=== PATIENT | female | born 1955 | race Caucasian/White ===

== ENCOUNTER 2020-09-10 16:45 | Outpatient (REF) | payer OTHER, SELFPAY | END 2020-09-10 16:46 | disposition home or self-care (01) | LOC: HO.LAB 16:45 | PROVIDERS: Visit Provider Nurse Practitioner Family | DX: Z20.828 Contact with and (suspected) exposure to other viral communicable diseases (principal) | CPT/HCPCS: 87071; 87635; 87880 ==

== ENCOUNTER 2020-09-19 11:44 | Outpatient (REF) | payer OTHER, SELFPAY ==
--- NOTE | 2020-09-19 11:51 | US_ITS ---
EXAMINATION: US THYROID CLINICAL INFORMATION: Dysphagia, unspecified. COMPARISON: None TECHNIQUE: Linear transducer leal-scale and color Doppler examination with attention to the region of the thyroid. FINDINGS: SIZE: Measurements of the thyroid lobes and nodules are given in sagittal, anteroposterior and transverse dimensions respectively. Right Thyroid Lobe: 4.8 x 1.2 x 1.5 cm, volume 4.5 mL. Parenchyma: The gland echotexture is heterogeneous. Thyroid vascularity is increased. Left Thyroid Lobe: 4.1 x 0.9 x 1.2 cm, volume 2.2 mL. Parenchyma: The gland echotexture is heterogeneous. Thyroid vascularity is increased. Isthmus: 0.3 cm in maximum AP dimension. RIGHT THYROID LOBE: No nodules. ISTHMUS: No nodules. LEFT THYROID LOBE: There are 2 nodules seen. 1. Location: Middle. Size: 0.5 x 0.6 x 0.4 cm. Nodule characteristics: Heterogeneous, smoothly marginated with intranodular flow. 2. Location: Middle. Size: 0.7 x 0.3 x 0.5 cm. Nodule characteristics: Heterogeneous, smoothly marginated with intranodular flow. NODES: No lymphadenopathy is seen in the tissue surrounding the thyroid gland. US/US thyroid IMPRESSION: Subcentimeter left thyroid nodule, nonsuspicious.
[2020-09-19 13:47] LABS: MANUAL DIFF FLAG NO
[2020-09-19 13:58] LABS: Basophils Percent Auto 0.6 % (0-2); Eosinophils Absolute Auto 0.1 X10*3/uL (0.0-0.4); Eosinophils Percent Auto 2.6 % (0-4); Hematocrit 39.4 % (37-47); Imm Gran Abs Auto 0.01 X10*3/uL (0.00-0.03); Imm Gran Pct Auto 0.2 % (0.0-0.4); Lymphocytes Absolute Auto 1.4 X10*3/uL (1.2-4.9); Lymphocytes Percent Auto 30.5 % (20-40); Mean Platelet Volume 10.3 fL (9.4-12.3); Monocytes Absolute Auto 0.4 X10*3/uL (0.1-1.2); Monocytes Percent Auto 8.2 % (2-11); Neutrophils Absolute Auto 2.7 X10*3/uL (2.0-8.3); Neutrophils Percent Auto 57.9 % (45-73); Platelet Count 249 X10*3/uL (160-400); Red Blood Count 4.33 X10*6/uL (4.20-5.50); Red Cell Distribution Width 13.2 % (11.0-16.0); White Blood Count 4.6 X10*3/uL (4.8-10.8)
[2020-09-19 14:25] LABS: Alanine Aminotransferase 13 U/L (0-31); Albumin Level 4.6 g/dL (3.5-5.0); Alkaline Phosphatase 65 U/L (39-117); Anion Gap 13 (12-20); Aspartate Amino Transferase 21 U/L (5-31); Bilirubin Total 0.8 mg/dL (0.0-1.0); Blood Urea Nitrogen 10 mg/dL (9-16); Calcium 8.7 mg/dL (8.4-10.2); Carbon Dioxide 31 mmol/L (22-29); Chloride 101 mmol/L (96-108); Cholesterol 246 mg/dL; Estimated Glomerular Filt Rate 59; Glucose Fasting 81 mg/dL (60-99); HDL Cholesterol 74 mg/dL; LDL Cholesterol Calculated 158 mg/dl; Potassium 3.7 mmol/l (3.3-5.1); Sodium 141 mmol/L (135-145); Triglycerides 73 mg/dL
[2020-09-19 14:33] LABS: TSH reflex Free T4 6.55 mIU/mL (0.32-4.0)
[2020-09-19 15:24] LABS: Free T4 (Free Thyroxine) 0.91 ng/dL (0.71-1.85)
== END 2020-09-19 11:45 | disposition home or self-care (01) ==
LOC: HO.HMGCX 11:44
PROVIDERS: PCP Internal Medicine; Visit Provider Nurse Practitioner Family
DX: R13.10 Dysphagia, unspecified (principal); Z00.00 Encounter for general adult medical examination without abnormal findings; R53.1 Weakness; Z78.0 Asymptomatic menopausal state; E78.5 Hyperlipidemia, unspecified
CPT/HCPCS: 36415; 76536; 80053; 80061; 82306; 84439; 84443; 85025

== ENCOUNTER → 2020-10-30 11:38 | Outpatient (BNVA) | payer OTHER, SELFPAY | PROVIDERS: PCP Internal Medicine; Referring Provider Internal Medicine; Visit Provider Internal Medicine | DX: Z76.89 Persons encountering health services in other specified circumstances (principal) ==

== ENCOUNTER 2020-11-10 17:26 | Outpatient (REF) | payer OTHER, SELFPAY ==
[2020-11-10 18:47] LABS: Free T4 (Free Thyroxine) 0.89 ng/dL (0.71-1.85); Thyroid Stimulating Hormone 2.36 uIU/mL (0.32-4.0); Vitamin D 25-OH Total 56.7 ng/mL (>30)
[2020-11-12 18:37] LABS: Triiodothyronine T3 Total 86 ng/dL (76-181)
[2020-11-12 18:57] LABS: Thyroglobulin Antibodies <1 IU/mL (< or = 1); Thyroid Peroxidase Antibodies 26 IU/mL (<9)
[2020-11-18 14:57] LABS: Thyroid Stimulating Immunoglob <89 % baseline (<140)
[2020-11-19 22:03] LABS: Thyrotropin Receptor Antibody <1.00 IU/L (<=2.00)
== END 2020-11-10 17:27 | disposition home or self-care (01) ==
LOC: HO.LAB 17:26
PROVIDERS: PCP Internal Medicine; Visit Provider Internal Medicine
DX: E03.9 Hypothyroidism, unspecified (principal); E04.2 Nontoxic multinodular goiter
CPT/HCPCS: 36415; 82306; 83520; 84439; 84443; 84445; 84480; 86376; 86800

== ENCOUNTER → 2020-12-11 13:26 | Outpatient (BNVA) | payer OTHER, SELFPAY | PROVIDERS: PCP Internal Medicine; Visit Provider Internal Medicine ==

== ENCOUNTER 2021-01-02 11:04 | Outpatient (REF) | payer OTHER, SELFPAY ==
[2021-01-02 14:16] LABS: Troponin-I High Sensitivity < 3.5 ng/L (<3.5-17.0)
[2021-01-02 14:27] LABS: Cholesterol 228 mg/dL; HDL Cholesterol 68 mg/dL; LDL Cholesterol Calculated 147 mg/dl; Triglycerides 68 mg/dL
[2021-01-02 14:37] LABS: Free T4 (Free Thyroxine) 0.98 ng/dL (0.71-1.85); Thyroid Stimulating Hormone 2.44 uIU/mL (0.32-4.0)
[2021-01-02 14:48] LABS: Free T4 (Free Thyroxine) 0.99 ng/dL (0.71-1.85); Thyroid Stimulating Hormone 2.75 uIU/mL (0.32-4.0)
[2021-01-03 04:03] LABS: Triiodothyronine T3 Free 2.9 pg/mL (2.3-4.2)
[2021-01-03 05:57] LABS: Thyroid Peroxidase Antibodies 18 IU/mL (<9)
== END 2021-01-02 11:05 | disposition home or self-care (01) ==
LOC: HO.HMGCLDS 11:04
PROVIDERS: Internal Medicine; Absent Provider Nurse Practitioner Family; PCP Internal Medicine; Visit Provider Internal Medicine
DX: E03.9 Hypothyroidism, unspecified (principal); R79.89 Other specified abnormal findings of blood chemistry; E04.1 Nontoxic single thyroid nodule; E78.5 Hyperlipidemia, unspecified; E04.2 Nontoxic multinodular goiter; R07.9 Chest pain, unspecified
CPT/HCPCS: 36415; 80061; 84439; 84443; 84481; 84484; 86376

== ENCOUNTER 2021-01-22 12:11 | Outpatient (REF) | payer OTHER, SELFPAY ==
[2021-01-27 07:32] LABS: HPV mRNA E6/E7 rflx Not Detected (Not Detected)
== END 2021-01-22 12:12 | disposition home or self-care (01) ==
LOC: HO.LAB 12:11
PROVIDERS: PCP Internal Medicine; Visit Provider Advanced Practice Midwife
DX: Z01.419 Encounter for gynecological examination (general) (routine) without abnormal findings (principal); Z11.51 Encounter for screening for human papillomavirus (HPV); N94.89 Other specified conditions associated with female genital organs and menstrual cycle; Z87.42 Personal history of other diseases of the female genital tract
CPT/HCPCS: 36415; 87624; 88142

== ENCOUNTER 2021-01-28 13:47 | Outpatient (REF) | payer OTHER, SELFPAY ==
--- NOTE | ~2021-01-28 | US_ITS ---
EXAMINATION: US PELVIS COMPLETE CLINICAL INFORMATION: Abnormal Pap smear, adnexal mass. COMPARISON: None. TECHNIQUE: Transabdominal and transvaginal ultrasound of the pelvis were performed. FINDINGS: The uterus is anteverted and anteflexed measuring 6.0 cm in length, 1.8 cm in AP and 4.0 cm in transverse dimension. Endometrial thickness is 0.1 cm. There is an echogenic calcification in the posterior upper body of uterus, question tiny calcified fibroid versus nonspecific calcification. Right ovary measures 2.7 x 1.8 x 1.7 cm and volume 4.3 mL. There is an anechoic cyst measuring 1.4 x 1.4 x 1.5 cm. Left ovary is not seen. There is no free fluid in the cul-de-sac. US/US pelvic complete IMPRESSION: Small right ovarian 1.5 cm cysts. Left ovary is not seen. Punctate calcification posterior uterus likely small calcific fibroid or a nonspecific calcification.
--- NOTE | ~2021-01-28 | US_ITS ---
EXAMINATION: US PELVIS COMPLETE CLINICAL INFORMATION: Abnormal Pap smear, adnexal mass. COMPARISON: None. TECHNIQUE: Transabdominal and transvaginal ultrasound of the pelvis were performed. FINDINGS: The uterus is anteverted and anteflexed measuring 6.0 cm in length, 1.8 cm in AP and 4.0 cm in transverse dimension. Endometrial thickness is 0.1 cm. There is an echogenic calcification in the posterior upper body of uterus, question tiny calcified fibroid versus nonspecific calcification. Right ovary measures 2.7 x 1.8 x 1.7 cm and volume 4.3 mL. There is an anechoic cyst measuring 1.4 x 1.4 x 1.5 cm. Left ovary is not seen. There is no free fluid in the cul-de-sac. US/US transvaginal IMPRESSION: Small right ovarian 1.5 cm cysts. Left ovary is not seen. Punctate calcification posterior uterus likely small calcific fibroid or a nonspecific calcification.
== END 2021-01-28 13:48 | disposition home or self-care (01) ==
LOC: HO.US 13:47
PROVIDERS: Visit Provider Advanced Practice Midwife
DX: N94.89 Other specified conditions associated with female genital organs and menstrual cycle (principal); Z87.42 Personal history of other diseases of the female genital tract
CPT/HCPCS: 76830; 76856

== ENCOUNTER → 2021-02-04 10:46 | Outpatient (BNVA) | payer OTHER, SELFPAY | PROVIDERS: Visit Provider Advanced Practice Midwife ==

== ENCOUNTER 2021-02-20 09:17 | Outpatient (REF) | payer OTHER, SELFPAY ==
--- NOTE | ~2021-02-20 | FL_ITS ---
EXAMINATION: FL BARIUM SWALLOW CLINICAL INFORMATION: Dysphagia. COMPARISON: None TECHNIQUE: Barium swallow examination is performed using fluoroscopic evaluation in addition to multiple fluoroscopic spot views. The patient is imaged both upright and prone and using both thick and thin sulfate along with effervescent granules. Fluoroscopy time: 1.3 minutes DAP: 2.6 Gycm2 Images: 57 FINDINGS: Following oral administration of thick barium and effervescent granules there is normal antegrade flow from the oral cavity through the pharynx, esophagus into stomach. There is mild mucosal irregularity seen on initial images which could be secondary to mucosal hyperplasia or inflammatory changes. No ulceration seen. The rest of the esophagus is normal. Mild prominence of cricoesophageal sphincter is noted. On oral administration of barium-coated turkey there is normal flow of solid food from the oral cavity through the pharynx, esophagus and stomach. There is no retention seen in the valleculae or piriform sinuses. No laryngeal aspiration or penetration. On placing patient prone lying and oral administration of thin barium there is normal distention of esophagus and pharynx without any obstruction or narrowing. FL/FL barium swallow IMPRESSION: Mild mucosal irregularity of the pharynx but otherwise unremarkable barium swallow exam.
== END 2021-02-20 09:18 | disposition home or self-care (01) ==
LOC: HO.XRAY 09:17
PROVIDERS: Visit Provider Nurse Practitioner Family
DX: R13.10 Dysphagia, unspecified (principal); J02.9 Acute pharyngitis, unspecified
CPT/HCPCS: 74220

== ENCOUNTER 2021-03-16 11:55 | Outpatient (REF) | payer OTHER, SELFPAY ==
[2021-03-16 14:32] LABS: Cholesterol 214 mg/dL; HDL Cholesterol 79 mg/dL; LDL Cholesterol Calculated 124 mg/dl; Triglycerides 58 mg/dL
[2021-03-16 15:01] LABS: Free T4 (Free Thyroxine) 0.92 ng/dL (0.71-1.85)
[2021-03-16 15:04] LABS: Thyroid Stimulating Hormone 2.11 uIU/mL (0.32-4.0)
== END 2021-03-16 11:56 | disposition home or self-care (01) ==
LOC: HO.HMGCLDS 11:55
PROVIDERS: Nurse Practitioner Family; PCP Internal Medicine; Visit Provider Internal Medicine
DX: E78.5 Hyperlipidemia, unspecified (principal); E03.9 Hypothyroidism, unspecified; E04.2 Nontoxic multinodular goiter
CPT/HCPCS: 36415; 80061; 84439; 84443

== ENCOUNTER → 2021-03-23 08:46 | Outpatient (BNVA) | payer OTHER, SELFPAY | PROVIDERS: PCP Internal Medicine; Visit Provider Internal Medicine ==

== ENCOUNTER 2021-06-02 12:31 | Outpatient (REF) | payer OTHER, SELFPAY ==
[2021-06-02 14:34] LABS: Free T4 (Free Thyroxine) 0.97 ng/dL (0.71-1.85); Thyroid Stimulating Hormone 1.59 uIU/mL (0.32-4.0); Vitamin D 25-OH Total 45.8 ng/mL (>30)
== END 2021-06-02 12:32 | disposition home or self-care (01) ==
LOC: HO.HMGCLDS 12:31
PROVIDERS: PCP Internal Medicine; Visit Provider Internal Medicine
DX: E03.9 Hypothyroidism, unspecified (principal); E04.2 Nontoxic multinodular goiter; E55.9 Vitamin D deficiency, unspecified
CPT/HCPCS: 36415; 82306; 84439; 84443

== ENCOUNTER → 2021-06-29 08:14 | Outpatient (BNVA) | payer OTHER, SELFPAY | PROVIDERS: PCP Internal Medicine; Visit Provider Internal Medicine ==

== ENCOUNTER 2021-08-21 09:15 | Outpatient (RCR) | payer OTHER, SELFPAY ==
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
[2021-07-23 14:27] VITALS: BMI 21.8
--- NOTE | 2021-07-23 14:58 | PC.NURSE ---
Case opened in treatment team
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
--- NOTE | 2021-07-28 12:05 | HO.PHPPROGNO ---
Subjective Subjective Date of Service: 07/28/21 Reason For Visit: Bipolar, Anxiety, Depression Diagnostics Vital Signs (24Hr): Body Mass Index 21.8 Assessment & Plan Certification I certify that partial hospital treatment is medically necessary due to the symptoms and problems resulting from the patient's mental illness and the failure to treat the patient at the partial hospital level of care would likely result in the patient requiring inpatient psychiatric care which could not be prevented at a less intensive level of care. Greater than 50% of the session was spent on counseling and/or coordination of care Discharge Plan Discharge Attending provider: Buzz Mayer Medications: New quetiapine [Seroquel] 25 mg tablet See Rx Instructions .ROUTE .COMPLEX 7 Days Qty: 21 RF: 0 No Action clonidine HCl 0.1 mg Tablet 0.05 - 0.1 mg PO BEDTIME PRN (Reason: Insomnia) RF: 0 lamotrigine 100 mg Tablet 200 mg PO DAILY RF: 0 lorazepam 0.5 mg tablet 0.5 mg PO BID PRN (Reason: Anxiety) RF: 0
--- NOTE | 2021-07-31 15:25 | HO.PHPPROGNO ---
Subjective Subjective Date of Service: 07/31/21 Reason For Visit: Bipolar, Anxiety, Depression Subjective Notes: Castillo Warning Guardianship: No Medical Problems Affecting Mental Status: No Interim History: Padmini reports feeling sedated this am, believes it was due to the seroquel 25mg she took. She then states she is having ?a reaction to an event ?, and ?I am kind of paranoid about going back to work ?. She did not elaborate further, except to say ?I want to be upbeat ?. She did endorses increased anxiety symptoms, poor sleep. Reports has been sleep only several hours per night, although sleep was about 5 hours last night, which she attributes to the seroquel. She presented as scattered, restless. She also reported she is unhappy with current weight, states that she is obsessed with her weight and weighs herself daily. 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 We discussed medications. She reports that she has only taken the Seroquel for several days, and has changed doses each day. Last night she states that she has taken the full bedtime dose of 50 mg. She has not been taking Ativan or clonidine as prescribed, changing doses, only taking partial doses. She does report taking lamotrigine 200mg daily. Medication Compliance: Intermittent Side effects from medications: No Attending Groups: Yes Review of Systems Acute medical concerns: No Medical Review of Systems: unchanged Review of Systems Review of Systems Yes all other systems are reviewed and are negative Mental Status Exam Mental Status Exam Narrative: Thin female, appears stated age. Appeared anxious, restless. Difficulty with concentration, pressured speech at times. Denies any thought of harm to self or others. Patient Appearance: Well Grooomed and Appropriate Patient Orientation: Person, Place, Time and Situation Level of Consciousness: Awake, Appropriate, Restless and Alert Patient Behavior: Appropriate, Cooperative, Restless and Anxious Mood Description: Anxious Affect Description: Anxious and Nervous Patient Cognition Impaired: No Ability to Follow Directions: Good Speech Pattern: Clear, Spontaneous Speech, Rapid and Pressured Memory Description: Intact Hallucinations: None Delusions: Not Present Thought Process: Intact and Distracted (distracted at times, difficulty paying attention to conversation. ) Thought Content: positive for Racing (racing at times. ), positive for Preoccupation (Appeared preoccupied with weight and sleep.) and positive for Disorganized Depressive Symptoms: Increased Anxiety, Insomnia, Diff. Making Decisions, Difficulty Sleeping and Difficulty Concentrating Judgement: Fair Diagnostics Vital Signs (24Hr): Body Mass Index 21.8 Assessment & Plan Assessment & Plan (1) Bipolar disorder: Qualifiers: Active/Remission status: currently active Current bipolar episode type: hypomanic Qualified Code(s): F31.0 - Bipolar disorder, current episode hypomanic Status: Acute Code(s): F31.9 - Bipolar disorder, unspecified Assessment and Plan: Patient appears to continue with hypomanic symptoms. She is very hesitant to take medications as prescribed. We discussed increasing Seroquel to 100 mg at bedtime and DC the a.m. dose. She is unwilling to do this at this time, but is agreeable to stopping the morning dose of 25 mg, and taking 75 mg at night. She was reassured several times that Seroquel is not addictive. Reports she is taking the Lamictal to 100 mg daily as prescribed. (2) PTSD (post-traumatic stress disorder): Status: Acute Code(s): F43.10 - Post-traumatic stress disorder, unspecified Assessment and Plan: Patient denies nightmares, flashbacks, exaggerated startle response. However patient does have increased anxiety, hypervigilance. She has not been taking lorazepam or clonidine as prescribed, and has been taking lower than prescribed doses. She was encouraged to take lorazepam 0.5 b.i.d., as it would help with her level of agitation/anxiety during the day. She also was encouraged to take at least 0.05 mg of clonidine at bedtime. She had reported she was taking this tablet in cutting in. Assessment and Plan: 1. D/C am seroquel 25mg daily. 2. Increase seroquel to 75mg at bedtime. 3. Continue lamotrigine 200mg daily. 4. Patient encouraged to utilize prn lorazepam and clonidine as prescribed. 5. Will follow-up as per protocol. Patient educated on: diagnosis, medication risk/benefits and therapeutic strategies Informed Consent: understands Reason for contiued partial hosp. stay Substantial Risk for: inability to function, rapid decompensation and med/psych decompensation Certification I certify that partial hospital treatment is medically necessary due to the symptoms and problems resulting from the patient's mental illness and the failure to treat the patient at the partial hospital level of care would likely result in the patient requiring inpatient psychiatric care which could not be prevented at a less intensive level of care. Greater than 50% of the session was spent on counseling and/or coordination of care Discharge Plan Discharge Attending provider: Buzz Mayer Medications: New quetiapine [Seroquel] 25 mg tablet See Rx Instructions .ROUTE .COMPLEX 7 Days Qty: 21 RF: 0 No Action clonidine HCl 0.1 mg Tablet 0.05 - 0.1 mg PO BEDTIME PRN (Reason: Insomnia) RF: 0 lamotrigine 100 mg Tablet 200 mg PO DAILY RF: 0 lorazepam 0.5 mg tablet 0.5 mg PO BID PRN (Reason: Anxiety) RF: 0 Telehealth Telehealth Location of provider rendering services: practice address Location of patient: address on file Patient Identification confirmed using: Name, : Yes Telehealth method: video Patient verbally consented to treatment: Yes Patient verbally consented to billing insurance company: Yes Patient informed of any privacy concerns related to visit: Yes Time spent with patient (mins): 15
--- NOTE | 2021-08-03 12:25 | PC.NURSE ---
Spoke to patient this morning who stated she was still in [place] visiting her mother as something came up. Patient plans on returning to the program tomorrow.
--- NOTE | 2021-08-04 14:18 | HO.PHPPROGNO ---
Subjective Subjective Date of Service: 08/06/21 Reason For Visit: Bipolar, Anxiety, Depression Subjective Notes: Castillo Warning and Conditional Voluntary Healthcare Proxy: No Guardianship: No Medical Problems Affecting Mental Status: No Interim History: Padmini is a 65-year-old female, referred to [facility] by her outpatient provider due to increasing feelings of being overwhelmed, anxiety, and depression. Patient is a retired career person, works full-time, and lives alone.? She is the caregiver of a 29-year-old son with developmental disabilities that is currently in a half-way, and also has an elderly mother that she helps care for.? She has been feeling as if her symptoms have escalated over the past several months. Precipitating factors include feeling triggered recently due to events an [place].? Patient has a history of trauma, and also served in as a career.? 07/28: [T/W accidentally deleted original progress note entered for 07/28 and so had to re-enter it but date of service is 07/28/21]: I evaluated the pt this morning and she reports she hasn?t tried the seroquel yet because ?Im wesley concerned,? says she is worried about the dose, ?Isnt that a lot?? ?I googled it.? Discussed sedation as a possible SE and that she may take it all at bedtime if it makes her tired. Sleep is still ?not so good,? fell asleep 3am, says this is consistent, typically gets 5 hours of sleep. Wakes up to use the restroom, difficulty falling back to sleep. Says daytime energy is low, ?I have to force myself to do stuff.? Reports her ?anxiety has been pretty high? and alleviating factors are walking, ?helps calm me down,? also using breathing. Still has impulsive purchases, ?I go to the store because im excited about stuff.? She then states ?I need to buy things to help myself become more organized,? has been purchasing items to organize her house but then says she wants to plan a garage sale. Says ?spending gives me a good feeling.? She presents as hyperverbal, inattentive, had to ask me to repeat questions, circumstantial, difficult to follow her logic. Medication Compliance: Yes Side effects from medications: No Attending Groups: Yes Review of Systems Acute medical concerns: No Medical Review of Systems: unchanged Mental Status Exam Mental Status Exam Narrative: Narrative:?Well-developed, well-nourished female, in NAD.? Alert and oriented x4.? Appropriately dressed. Patient Appearance:?Well Grooomed and Appropriate Patient Orientation:?Person, Place, Time and Situation Level of Consciousness:?Awake and Appropriate Patient Behavior:?Appropriate, Cooperative, Anxious and Good Eye Contact Mood Description:?Appropriate and Anxious Affect Description:?Appropriate and Anxious Patient Cognition Impaired:?No Speech Pattern:?Clear, Coherent, Rapid (rapid at times. ), Excessive and Pressured (pressured at times. ) Memory Description:?Intact Hallucinations:?None Delusions:?Not Present Thought Process:?Intact and Distracted (became distracted easily, able to redirect back to topic. ) Thought Content:?positive for Intact (intact, although circumstantial at times, and perseveration at times. ), positive for Circumstantial, positive for Goal Oriented and positive for Perseveration Depressive Symptoms:?Increased Anxiety, Diff. Making Decisions, Increased Irritability, Difficulty Sleeping and Difficulty Concentrating Judgement:?Fair Diagnostics Vital Signs (24Hr): Body Mass Index 21.8 Assessment & Plan Assessment & Plan (1) Bipolar disorder: Qualifiers: Active/Remission status: currently active Current bipolar episode type: hypomanic Qualified Code(s): F31.0 - Bipolar disorder, current episode hypomanic Status: Acute Code(s): F31.9 - Bipolar disorder, unspecified Assessment and Plan: Padmini is presenting with sx of hypomania, differential diagnosis of bipolar II disorder, PTSD, and BPD. She is currently prescribed lamotrigine 200 mg in the a.m.? She also has clonidine and lorazepam p.r.n.? 1. Has not started seroquel- reviewed risks/ benefits and agrees to trial 25mg scheduled in am, seroquel 50mg scheduled at bedtime. May move doses to bedtime if sedated in the day. 2. No changes to current doses of lamictal, clonidine, lorazepam. 3. Follow-up with patient as per protocol. Certification I certify that partial hospital treatment is medically necessary due to the symptoms and problems resulting from the patient's mental illness and the failure to treat the patient at the partial hospital level of care would likely result in the patient requiring inpatient psychiatric care which could not be prevented at a less intensive level of care. Greater than 50% of the session was spent on counseling and/or coordination of care Discharge Plan Discharge Attending provider: Buzz Mayer Medications: Changed quetiapine [Seroquel] 25 mg tablet See Rx Instructions .ROUTE .COMPLEX 7 Days Qty: 21 RF: 0 No Action clonidine HCl 0.1 mg Tablet 0.05 - 0.1 mg PO BEDTIME PRN (Reason: Insomnia) RF: 0 lamotrigine 100 mg Tablet 200 mg PO DAILY RF: 0 lorazepam 0.5 mg tablet 0.5 mg PO BID PRN (Reason: Anxiety) RF: 0
--- NOTE | 2021-08-05 13:12 | P.PNPSP_ITS ---
Subjective Subjective Date of Service: 08/05/21 Reason For Visit: Bipolar, Anxiety, Depression Subjective Notes: Castillo Warning Guardianship: No Medical Problems Affecting Mental Status: No Interim History: Padmini reports feeling overall more stabilized, but states that she has noticed she has been irritable toward her mother and her son. Reports sleeping 6 hours last night, but going to bed very late. Denies any thoughts of harm to self or others at this time. Discussed medications in detail, as well as sleep hygiene. Also discussed [place] paperwork she has requested to be completed. She says that once a script is past first fill, it needs to be sent to her mail-in pharmacy. She says she will contact [facility] with the information for scripts. Medication Compliance: Yes Side effects from medications: No Attending Groups: Yes Review of Systems Acute medical concerns: No Medical Review of Systems: unchanged Review of Systems Review of Systems A full review of systems was completed and was negative with the exception of pertinent positives noted in history of presenting illness. Mental Status Exam Mental Status Exam Narrative: Well-developed, well-nourished female, in NAD. Alert and oriented x4. Appropriately dressed. Patient Appearance: Well Grooomed and Appropriate Patient Orientation: Person, Place, Time and Situation Level of Consciousness: Awake and Appropriate Patient Behavior: Appropriate, Cooperative, Anxious and Good Eye Contact Mood Description: Appropriate and Anxious Affect Description: Appropriate and Anxious Patient Cognition Impaired: No Speech Pattern: Clear, Coherent, Rapid (rapid at times. ), Excessive and Pressured (pressured at times. ) Memory Description: Intact Hallucinations: None Delusions: Not Present Thought Process: Intact and Distracted (became distracted easily, able to redirect back to topic. ) Thought Content: positive for Intact (intact, although circumstantial at times, and perseveration at times. ), positive for Circumstantial, positive for Goal Oriented and positive for Perseveration Depressive Symptoms: Increased Anxiety, Diff. Making Decisions, Increased Irritability, Difficulty Sleeping and Difficulty Concentrating Judgement: Fair Diagnostics Vital Signs (24Hr): Body Mass Index 21.8 Assessment & Plan Assessment & Plan (1) Bipolar disorder: Qualifiers: Active/Remission status: currently active Current bipolar episode type: hypomanic Qualified Code(s): F31.0 - Bipolar disorder, current episode hypomanic Status: Acute Code(s): F31.9 - Bipolar disorder, unspecified Assessment and Plan: Patient continues with some mood lability. Reports feeling improvement overall, but does state that she has been feeling irritable. Reports the Seroquel appears to be helping, along with the clonidine and the lorazepam. Discussed increasing Seroquel, patient unwilling to increase dose at this time, would prefer to stay at 75 mg at night. Denies any thought of harm to self or others, no safety concerns at this time. (2) PTSD (post-traumatic stress disorder): Status: Acute Code(s): F43.10 - Post-traumatic stress disorder, unspecified Assessment and Plan: Overall continues with hypervigilance and irritability, otherwise feeling more stable. Continues with poor sleep. Reports she has been drinking coffee late at night as well as exercising. Discussed sleep hygiene, also suggested OTC melatonin low-dose take at dinnertime. Assessment and Plan: 1. Continue medications as prescribed. 2. Consider adding OTC melatonin to to 3 mg to help improve sleep. 3. Consider sleep hygiene, such as DC caffeine drinks after to p.m., stop using electronic devices after dinner, developed nighttime sleep preparation habits such as dim lighting, relaxation techniques, etc.. 4. [facility] paperwork completed, signed. 5. Follow-up as per protocol. Patient educated on: diagnosis, medication risk/benefits and therapeutic strategies Reason for contiued partial hosp. stay Substantial Risk for: inability to function and med/psych decompensation Certification I certify that partial hospital treatment is medically necessary due to the symptoms and problems resulting from the patient's mental illness and the failure to treat the patient at the partial hospital level of care would likely result in the patient requiring inpatient psychiatric care which could not be prevented at a less intensive level of care. Greater than 50% of the session was spent on counseling and/or coordination of care Discharge Plan Discharge Attending provider: Buzz Mayer Medications: Changed quetiapine [Seroquel] 25 mg tablet See Rx Instructions .ROUTE .COMPLEX 7 Days Qty: 21 RF: 0 No Action clonidine HCl 0.1 mg Tablet 0.05 - 0.1 mg PO BEDTIME PRN (Reason: Insomnia) RF: 0 lamotrigine 100 mg Tablet 200 mg PO DAILY RF: 0 lorazepam 0.5 mg tablet 0.5 mg PO BID PRN (Reason: Anxiety) RF: 0 Telehealth Telehealth Location of provider rendering services: practice address Location of patient: address on file Patient Identification confirmed using: Name, : Yes Telehealth method: video Patient verbally consented to treatment: Yes Patient verbally consented to billing insurance company: Yes Patient informed of any privacy concerns related to visit: Yes Time spent with patient (mins): 25
--- NOTE | 2021-08-11 15:06 | PC.NURSE ---
Staff informed my that pt is struggling and wants a phone call. I called pt and received a busy signal a few times. Then I called and got her voicemail. I left a message letting her know that I'm here and to pls call.
--- NOTE | 2021-08-11 15:49 | PC.NURSE ---
Pt called back and I spoke to her. She reported feeling overwhelmed with stressors, including the fact that mold has been discovered in her home and that she doesn't know where her son will be placed, as they are moving his current placement. She spoke about financial stress and fear that she wont be able to retire. She said she is safe, just overwhelmed. I asked if she still struggles with alcohol cravings or use, and she said no. She maintained that she quite alcohol in 2005. We discussed mindfulness and distress tolerance skills. Pt plans to go to [employer] and get paint, and focus on painting her deck today.
--- NOTE | 2021-08-12 16:26 | HO.PHPPROGNO ---
Subjective Subjective Date of Service: 08/12/21 Reason For Visit: Bipolar, Anxiety, Depression Subjective Notes: Castillo Warning Guardianship: No Medical Problems Affecting Mental Status: No Interim History: Padmini reports that she has been feeling better over the past week. She states that she was taking medications as prescribed, and trying to get to bed early. She reports that for 3 days, she was able to be in bed sleeping by 00:45, and that she was doing well. She reports that over this weekend and up until today, she has been doing multiple errands, and not able to get more than several hours of sleep at night. She attributes this to situational stressors such as needing to transport her disabled son to [place] at 1 point and then to [place], which did not allow her to return home until very late at night. She describes her mood today as ?anxious, depressed. I feel like everything hit me like a ton of bricks, crashing down on me yesterday . She reports feeling safe, denies any thoughts of harm to self or others. Medication Compliance: Intermittent Side effects from medications: No Attending Groups: Yes Review of Systems Acute medical concerns: No Medical Review of Systems: unchanged Review of Systems Review of Systems Yes all other systems are reviewed and are negative Eyes: Reports no additional eye complaints Reports Normal hearing present Cardiovascular: Reports no additional cardiovascular complaints Respiratory: Reports no additional respiratory complaints Gastrointestinal: Reports no additional gastrointestinal complaints Genitourinary: Reports no additional female genitourinary complaints Musculoskeletal: Reports no additional musculoskeletal complaints Reports Normal hearing present Mental Status Exam Mental Status Exam Narrative: Well-developed, well-nourished female, no apparent distress. Appear to be sitting on an exercise ball as a chair, with continual rocking during encounter. Otherwise was fully alert, cooperative. Patient Appearance: Well Grooomed and Appropriate Patient Orientation: Person, Place, Time and Situation Level of Consciousness: Awake, Appropriate and Alert Patient Behavior: Appropriate, Talkative, Cooperative, Restless and Good Eye Contact Mood Description: Appropriate, Depressed and Anxious Affect Description: Appropriate, Depressed and Anxious Patient Cognition Impaired: No Ability to Follow Directions: Excellent Speech Pattern: Clear and Pressured (pressured at times. ) Memory Description: Intact Hallucinations: None Delusions: Not Present Thought Process: Intact, Goal Oriented and Linear Thought Content: positive for Intact, positive for Flight of Ideas, positive for Goal Oriented, positive for Linear and positive for Tangential Depressive Symptoms: Increased Anxiety, Difficulty Sleeping, Feelings of Worthlessness, Hopelessness, Feelings of Guilt and Increased Fatigue Judgement: Fair Diagnostics Vital Signs (24Hr): Body Mass Index 21.8 Assessment & Plan Assessment & Plan (1) PTSD (post-traumatic stress disorder): Status: Acute Code(s): F43.10 - Post-traumatic stress disorder, unspecified Assessment and Plan: Patient denies any PTSD symptoms exacerbations such as nightmares, flashbacks, irritability, increased startle response, or hyperarousal. She reports that she is taking the p.r.n. lorazepam and clonidine as prescribed, and feels her PTSD symptoms are being well managed at this time. (2) Bipolar disorder: Qualifiers: Active/Remission status: currently active Current bipolar episode type: hypomanic Qualified Code(s): F31.0 - Bipolar disorder, current episode hypomanic Status: Acute Code(s): F31.9 - Bipolar disorder, unspecified Assessment and Plan: Patient continues with slightly elevated hypomanic symptoms. She appears to be distracted at times, continues with insomnia and flight of ideas. No safety concerns, no engagement in any type of risky behaviors, denies any thoughts of harm to self or others. She been taking lamotrigine daily as scheduled, as well as quetiapine 75 mg at bedtime. Discussed increasing Seroquel dose, as had been recommended during previous visit as well. Patient states that this time she feels current medication doses are working well and she does not wish to increase dose. Assessment and Plan: 1. Continue current medications as prescribed. 2. Patient does not require refills, as they were sent in yesterday. 3. Follow up as per protocol. Patient educated on: diagnosis, medication risk/benefits and therapeutic strategies Informed Consent: understands Reason for contiued partial hosp. stay Substantial Risk for: inability to function and med/psych decompensation Certification I certify that partial hospital treatment is medically necessary due to the symptoms and problems resulting from the patient's mental illness and the failure to treat the patient at the partial hospital level of care would likely result in the patient requiring inpatient psychiatric care which could not be prevented at a less intensive level of care. Greater than 50% of the session was spent on counseling and/or coordination of care Discharge Plan Discharge Attending provider: Buzz Mayer Medications: Changed quetiapine [Seroquel] 25 mg tablet See Rx Instructions .ROUTE .COMPLEX 30 Days Qty: 90 RF: 0 No Action clonidine HCl 0.1 mg Tablet 0.05 - 0.1 mg PO BEDTIME PRN (Reason: Insomnia) RF: 0 lamotrigine 100 mg Tablet 200 mg PO DAILY RF: 0 lorazepam 0.5 mg tablet 0.5 mg PO BID PRN (Reason: Anxiety) RF: 0 Telehealth Telehealth Location of provider rendering services: practice address Location of patient: address on file Patient Identification confirmed using: Name, : Yes Telehealth method: video Patient verbally consented to treatment: Yes Patient informed of any privacy concerns related to visit: Yes Time spent with patient (mins): 15
--- NOTE | 2021-08-17 15:00 | HO.PHPPROGNO ---
Subjective Subjective Date of Service: 08/17/21 Reason For Visit: Bipolar, Anxiety, Depression Guardianship: No Medical Problems Affecting Mental Status: No Interim History: Padmini reports feeling she has backslid , stating that she has reverted back to her old schedule of staying up late at night to get things done . Reports that last night she began putitng down shelf paper liner at 11:00pm, which kept her up to approximately 3:00am. She reports poor sleep, but otherwise no intrusive thoughts, no thoughts of harm to self or others. Medication Compliance: Intermittent Side effects from medications: No Attending Groups: Yes Review of Systems Acute medical concerns: No Medical Review of Systems: unchanged Review of Systems Review of Systems Yes all other systems are reviewed and are negative Mental Status Exam Mental Status Exam Narrative: Well-developed, well-nourished female, in NAD. Appropriately groomed, appropriately dressed. Patient Appearance: Well Grooomed and Appropriate Patient Orientation: Person, Place, Time and Situation Level of Consciousness: Appropriate and Alert Patient Behavior: Appropriate, Cooperative and Anxious Mood Description: Calm and Appropriate Affect Description: Appropriate and Anxious Patient Cognition Impaired: No Ability to Follow Directions: Excellent Speech Pattern: Clear, Appropriate and Coherent Memory Description: Intact Hallucinations: None Delusions: Not Present Thought Process: Intact, Goal Oriented and Linear Thought Content: positive for Intact, positive for Goal Oriented and positive for Linear Depressive Symptoms: Increased Anxiety and Difficulty Sleeping Judgement: Fair Diagnostics Vital Signs (24Hr): Body Mass Index 21.8 Assessment & Plan Assessment & Plan (1) PTSD (post-traumatic stress disorder): Status: Acute Code(s): F43.10 - Post-traumatic stress disorder, unspecified Assessment and Plan: Patient denies any type of intrusive memories, nightmares, hypervigilance. (2) Bipolar disorder: Qualifiers: Active/Remission status: currently active Current bipolar episode type: hypomanic Qualified Code(s): F31.0 - Bipolar disorder, current episode hypomanic Status: Acute Code(s): F31.9 - Bipolar disorder, unspecified Assessment and Plan: Patient reports that she was sleeping well and going to bed early for a few days last week, but has since reverted back to her old pattern of staying up very late at night in order to ?get projects done ?, and waking up early. She reports that she has been taking Seroquel 75 at night, with some affect. Unwilling to increase does, as she believes this dose works well for her. She denies any type of thoughts of suicidal ideation, any thought of harm to self or others. She states that she is taking her medications as prescribed. Reports that she does not need any refills at this time. She does report that she had read that Seroquel is not addictive, and that she was happy to hear this. Assessment and Plan: 1. Continue current medications as prescribed. 2. Follow-up as per protocol. Patient educated on: diagnosis, medication risk/benefits and therapeutic strategies Informed Consent: understands Reason for contiued partial hosp. stay Substantial Risk for: inability to function and med/psych decompensation Certification I certify that partial hospital treatment is medically necessary due to the symptoms and problems resulting from the patient's mental illness and the failure to treat the patient at the partial hospital level of care would likely result in the patient requiring inpatient psychiatric care which could not be prevented at a less intensive level of care. Greater than 50% of the session was spent on counseling and/or coordination of care Discharge Plan Discharge Attending provider: Buzz Mayer Medications: Changed quetiapine [Seroquel] 25 mg tablet See Rx Instructions .ROUTE .COMPLEX 30 Days Qty: 90 RF: 0 No Action clonidine HCl 0.1 mg Tablet 0.05 - 0.1 mg PO BEDTIME PRN (Reason: Insomnia) RF: 0 lamotrigine 100 mg Tablet 200 mg PO DAILY RF: 0 lorazepam 0.5 mg tablet 0.5 mg PO BID PRN (Reason: Anxiety) RF: 0 Telehealth Telehealth Location of provider rendering services: practice address Location of patient: address on file Patient Identification confirmed using: Name, : Yes Telehealth method: video Patient verbally consented to treatment: Yes Patient verbally consented to billing insurance company: Yes Patient informed of any privacy concerns related to visit: Yes Time spent with patient (mins): 15
--- NOTE | 2021-08-21 08:47 | PC.NURSE ---
Patient scheduled to discharge from the program today. Reviewed discharge paperwork with patient and discharge medications. Patient reports taking medications as prescribed. Patient denied SI or thoughts to harm herself. No safety issues. Stated she feels anxious about discharge however feels she has learned a lot. Not sure if she is ready to go back to work as she stated she has, a lot to get done and a lot to take care of regarding her mother and her son. Patient wants to go back to work in the next few weeks.
--- NOTE | 2021-08-21 15:20 | HO.PHPPROGNO ---
Subjective Subjective Date of Service: 08/21/21 Reason For Visit: Bipolar, Anxiety, Depression Guardianship: No Medical Problems Affecting Mental Status: No Interim History: Padmini reports feeling exhausted, tired, having a headache. Reports she is feeling anxiety regarding returning to work and needing to deal with her son and her mother's care needs at this time. Patient's last day is today. Requesting return to work note. Medication Compliance: Yes Side effects from medications: No Attending Groups: Yes Review of Systems Acute medical concerns: No Medical Review of Systems: unchanged Mental Status Exam Mental Status Exam Narrative: Well-developed, well-nourished female, in NAD. Appropriately dressed and groomed. Eye contact fair. Alert and oriented x4. No involuntary movements noted, motor activity restless. Patient was common cooperative during encounter. Speech was fluent, unimpaired. Mood described as anxious. Affect was mood congruent. Thought process linear, goal directed. Thought content normal, future directed. No evidence of delusional thoughts or hallucinations. She denies any HI/SI. No safety concerns at this time. Judgment and insight fair to good. Ambulation not observed. Diagnostics Vital Signs (24Hr): Body Mass Index 21.8 Assessment & Plan Assessment & Plan (1) Bipolar disorder: Qualifiers: Active/Remission status: currently active Current bipolar episode type: hypomanic Qualified Code(s): F31.0 - Bipolar disorder, current episode hypomanic Status: Acute Code(s): F31.9 - Bipolar disorder, unspecified Assessment and Plan: Patient continues with anxious mood and affect. Reports she is taking her medications as prescribed. Does not need refills at this time. (2) PTSD (post-traumatic stress disorder): Status: Acute Code(s): F43.10 - Post-traumatic stress disorder, unspecified Assessment and Plan: Patient did on eyes any overt PTSD symptoms such as exaggerated startle response, hyperarousal or hypervigilance at this time. Assessment and Plan: 1. Patient does not require refills. Plans to discuss medications with outpatient provider going forward. 2. Return to work no to be completed and sent to client, per her request. 3. No safety concerns at this time, patient appears stable for discharge from [facility]. Patient educated on: diagnosis, medication risk/benefits and therapeutic strategies Informed Consent: understands Reason for contiued partial hosp. stay Substantial Risk for: stable for discharge Certification I certify that partial hospital treatment is medically necessary due to the symptoms and problems resulting from the patient's mental illness and the failure to treat the patient at the partial hospital level of care would likely result in the patient requiring inpatient psychiatric care which could not be prevented at a less intensive level of care. Greater than 50% of the session was spent on counseling and/or coordination of care Discharge Plan Discharge Attending provider: Buzz Mayer Additional Instructions: Patient stated she has a therapist appointment with Mireya Robbins on Tuesday08/24/21. Appointment with Dr Khan, patient's prescriber, Telehealth on October 07, 2021 at 11:30 PM. (PCP Dr Grimes at [facility]-no available appointments). In office appointment made with Dr Weston at [facility] for patient complaints of short term memory issues on September 01, 2021 at 0830. Medications: Changed quetiapine [Seroquel] 25 mg tablet See Rx Instructions .ROUTE .COMPLEX 30 Days Qty: 90 RF: 0 No Action clonidine HCl 0.1 mg Tablet 0.05 - 0.1 mg PO BEDTIME PRN (Reason: Insomnia) RF: 0 lamotrigine 100 mg Tablet 200 mg PO DAILY RF: 0 lorazepam 0.5 mg tablet 0.5 mg PO BID PRN (Reason: Anxiety) RF: 0 Stand Alone Forms: Patient Portal Discharge page Telehealth Telehealth Location of provider rendering services: practice address Location of patient: address on file Patient Identification confirmed using: Name, : Yes Telehealth method: video Patient verbally consented to treatment: Yes Patient verbally consented to billing insurance company: Yes Time spent with patient (mins): 15
--- NOTE | 2021-08-21 15:28 | PC.NURSE ---
I called and left a message for Mireya Robbins at [facility], pt's therapist. I informed her about pt's clinical presentation and discharge today from [facility].
== END 2021-08-24 07:12 | disposition home or self-care (01) ==
LOC: HO.PHPA 09:15
PROVIDERS: Visit Provider Psychiatry & Neurology Psychiatry
DX: F31.0 Bipolar disorder, current episode hypomanic (principal); F43.10 Post-traumatic stress disorder, unspecified; Z79.899 Other long term (current) drug therapy
CPT/HCPCS: 90791; 90853

== ENCOUNTER 2022-12-01 14:05 | Outpatient (REF) | payer MEDICARE, OTHER, SELFPAY ==
--- NOTE | ~2022-12-01 | XR_ITS ---
EXAMINATION: AP PELVIS AND RIGHT KNEE 2 VIEWS. CLINICAL INFORMATION: Pain in right knee COMPARISON: None TECHNIQUE: AP bilateral knee standing. Right knee 2 views. FINDINGS: AP bilateral knee: There is mild reduction in medial compartment joint space right knee with periarticular spurring. The lateral compartment joint space is maintained normal. No bony erosive changes, loose bodies or joint soft tissue swelling. Right knee: There is mild loss of patellofemoral compartment joint space with periarticular spurring. No bony erosive changes, acute fracture or dislocation. The soft tissues are normal. XR/XR knee standing BI IMPRESSION: Mild degenerative changes medial and patellofemoral compartment right knee. No visible acute fracture, dislocation or subluxation seen. Mild degenerative changes medial compartment left knee.
--- NOTE | ~2022-12-01 | XR_ITS ---
EXAMINATION: AP PELVIS AND RIGHT KNEE 2 VIEWS. CLINICAL INFORMATION: Pain in right knee COMPARISON: None TECHNIQUE: AP bilateral knee standing. Right knee 2 views. FINDINGS: AP bilateral knee: There is mild reduction in medial compartment joint space right knee with periarticular spurring. The lateral compartment joint space is maintained normal. No bony erosive changes, loose bodies or joint soft tissue swelling. Right knee: There is mild loss of patellofemoral compartment joint space with periarticular spurring. No bony erosive changes, acute fracture or dislocation. The soft tissues are normal. XR/XR knee RT 2V IMPRESSION: Mild degenerative changes medial and patellofemoral compartment right knee. No visible acute fracture, dislocation or subluxation seen. Mild degenerative changes medial compartment left knee.
== END 2022-12-01 14:06 | disposition home or self-care (01) ==
LOC: HO.HOSX 14:05
PROVIDERS: Visit Provider Physician Assistant
DX: M17.0 Bilateral primary osteoarthritis of knee (principal)
CPT/HCPCS: 73560; 73565; 99202